=== PATIENT | female | born 1980 | race Asian ===

== ENCOUNTER 2023-09-27 20:25 | Emergency (ER) | payer OTHER, SELFPAY ==
[2023-09-27 20:27] VITALS: BP 139/89
[2023-09-27 20:57] LABS: Urine Albumin 3+ (Neg - Trace); Urine Bilirubin Negative (Negative); Urine Character Slightly Cloudy (Clear); Urine Color Red; Urine Glucose Negative (Negative); Urine Ketone Negative (Negative); Urine Leukocyte 2+ (Negative); Urine Nitrite Negative (Negative); Urine Occult Blood 4+ (Negative); Urine Urobilinogen Negative (Neg - 1+); Urine pH 6.5 (5.0-9.0)
[2023-09-27 21:01] LABS: HCG, Urine Qualitative Screen Negative
[2023-09-27 21:20] LABS: Urine Red Blood Cell >100 /HPF (0-2)
[2023-09-27] MEDS: TORADOL 30 MG IM (21:28)
[2023-09-27] MEDS: PERCOCET 5/325 1 TABLET PO (21:28)
[2023-09-27 21:38] LABS: % Basophils 0.3 % (0-2); % Eosinophils 0.7 % (0-6); % Immature Granulocytes 0.3 % (0-0.5); % Lymphocytes 13.6 % (20.5-51.1); % Monocytes 6.8 % (1.7-9.3); % Neutrophils 78.3 % (42.2-75.2); Absolute Eosinophils 0.1 10^3/uL (0-0.7); Absolute Lymphocytes 1.6 10^3/uL (1.2-3.4); Absolute Monocytes 0.8 10^3/uL (0.1-0.6); Absolute Neutrophils 9.2 10^3/uL (1.4-6.5); Hematocrit 38.7 % (37.0-47.0); Hemoglobin 12.8 g/dL (12.0-16.0); Mean Corp Hgb Conc. 33.1 g/dL (33.0-37.0); Mean Corpuscular Hgb 27.3 pg (27.0-31.0); Mean Corpuscular Volume 82.5 fL (81.0-99.0); Mean Platelet Volume 9.6 fL (7.4-10.4); Nucleated Red Blood Cells % 0 %; Platelet Count 250 10^3/uL (130-400); Red Blood Cell Count 4.69 10^6/uL (4.20-5.40); White Blood Cell Count 11.8 10^3/uL (4.8-10.8)
[2023-09-27 22:12] LABS: ALT (SGPT) 22 U/L (0-35); AST (SGOT) 25 U/L (14-36); Albumin 4.9 g/dl (3.5-5.0); Alkaline Phosphatase 82 U/L (38-126); Blood Urea Nitrogen 8 mg/dl (7-17); Calcium 9.7 mg/dl (8.4-10.2); Carbon Dioxide 28 mmol/L (22-30); Chloride 101 mmol/L (98-107); Glucose 104 mg/dl (70-99); Potassium 3.8 mmol/L (3.5-5.1); Sodium 137 mmol/L (135-145); Total Bilirubin 0.6 mg/dl (0.2-1.3); Total Protein 7.9 g/dl (6.3-8.2); eGFR > 60.00
--- NOTE | 2023-09-27 22:41 | ED.GENMED ---
Addendum entered and electronically signed by Ahmet Reynolds PA-C 10/01/23 10:33:
Patient's urine culture returned with greater than 100,000 CFU of E. coli that is pansensitive. Patient has no listed allergies so prescription for Augmentin was sent to patient's pharmacy. I contacted the patient but there was no answer so a
voicemail was left for the patient to contact the ER back.
Original Note:
History of Present Illness
General
Chief Complaint: Abdominal Pain
Source: patient
Exam Limitations: none
Time Seen by Provider: 09/27/23 22:25
Nursing documentation reviewed up to this point in time: agreed with
History of Present Illness
History of Present Illness:
Patient presents to ED secondary to painful urination associated with discomfort in her 'private area', noted this morning. This evening, patient noted blood in her urine with passage of 'small speck of stone'. Denies fever or chills. Denies
nausea or vomiting. Patient does report radiating pain to her back since this morning. Denies previous history of similar symptoms. Denies recent illness. Denies trauma. There is family history of kidney stones however.
Past History
Past History
ED Past Medical History: None
ED Past Surgical History: None
Social History
Tobacco: Non-smoker
Alcohol: None
Drug: None
Personal:
Living: with family
Employment: Employed
Family History
Family History: Other (All family members are sick with similar)
Review of Systems
Review of Systems
Allergies reviewed?: Yes
All Other Systems: ROS reviewed and negative except as documented in HPI and ROS
Constitutional: Reports no symptoms; Denies fever
ABD/GI: Reports no symptoms; Denies abdominal pain, nausea or vomiting
: Reports dysuria and bleeding
Skin: Reports no symptoms
Neurological: Reports no symptoms
Phy Exam
Physical Exam
Physical Exam:
Physical Exam
General: no apparent distress, not acutely ill. afebrile
Head: nc/at. eomi
Neck: supple. normal range of motion
Abdomen: normal bowel sounds. not tender.
Back: no cva tenderness
Neuro: alert and oriented. no focal neurological deficits
Skin: no rash
Psychiatric: well kept. interactive and cooperative
Extremities: no edema. no calf tenderness.
Course
Orders/Labs/Results
Orders:
Orders
09/27/23 20:30
Test Result ONCE
09/27/23 20:32
HCG, Urine Qualitative Screen Urgent
Date Specimen was Collected: 09/27/23
Time Specimen was Collected: 20:30
Urinalysis Reflex To Culture Urgent
Date Specimen was Collected: 09/27/23
Time Specimen was Collected: 20:30
Urine Microscopic Reflex Cult Urgent
Urine Culture Urgent
LISSETH Source: U
Specimen Description:
Date Specimen was Collected: 09/27/23
Time Specimen was Collected: 20:30
09/27/23 21:23
Ketorolac [Toradol] 30 mg IM NOW STA
Oxycodone/Acetaminophen [Percocet 5/325] 1 tablet PO NOW STA
09/27/23 21:24
CT Abd/pel Without Iv Or Oral Urgent
Comment:
Reason For Exam: right sided flank pain, suspect kidney stone
09/27/23 21:32
Complete Blood Count/With Diff Urgent
Comprehensive Metabolic Panel Urgent
Abnormal Lab Results
09/27/23 09/27/23
20:32 21:32
WBC 11.8 H 10^3/uL
(4.8-10.8)
Absolute Neuts (auto) 9.2 H 10^3/uL
(1.4-6.5)
Absolute Monos (auto) 0.8 H 10^3/uL
(0.1-0.6)
Neutrophils % 78.3 H %
(42.2-75.2)
Lymphocytes % 13.6 L %
(20.5-51.1)
Glucose 104 H mg/dl
(70-99)
Ur Occult Blood Reflex 4+ A
(Negative)
Leukocyte Esterase Rfl 2+ A
(Negative)
Urine RBC >100 A /HPF
(0-2)
Urine Albumin (Reflex) 3+ A
(Neg - Trace)
09/27/23 21:32
09/27/23 21:32
Vital Signs
Initial and Last Documented VS:
Initial Vital Signs
Temp Pulse Resp BP Pulse Ox
98.5 F 94 18 139/89 98
09/27/23 20:27 09/27/23 20:27 09/27/23 20:27 09/27/23 20:27 09/27/23 20:27
Last Documented Vital Signs
Temp Pulse Resp BP Pulse Ox
98.5 F 81 16 117/73 97
09/27/23 20:27 09/27/23 22:50 09/27/23 22:50 09/27/23 22:50 09/27/23 22:50
MDM/Problems Addressed
MDM/Problems Addressed:
Pt reports complete resolution of symptoms after treatment. History and exam consistent with likely recently passed kidney stone. Mild leukocytosis, likely reactive. Urinalysis, difficult ascertain secondary to blood, but patient does not have
any history of urinary tract infection. As such, will withhold antibiotics at this time.
Urine culture pending.
Patient will be discharged home in stable condition, to the care of her family, with recommendation to take Tylenol/Motrin for symptomatic relief, likely secondary to residual spasm from recently passed stone. However, if symptoms persist or worsen
over the next 24 to 48 hours, advised follow-up with referred urologist or return to ED for reevaluation.
*Critical Care Note
Total Time (30-74mins, 75-104mins- exclusive of procedures): Not Applicable
ED Attending Note
-
Portions of this chart may have been created with voice recognition software.� Occasional wrong word or��sound alike� substitutions may have occurred due to the inherent limitations of voice recognition software.
Discharge Plan
Departure
Patient Disposition: Home (Routine Discharge)
Date of Disposition: 09/27/23
Time of Disposition: 22:41
Patient with high blood pressure during this ER visit?: Yes
Condition: Good
Discharge Problem:
Kidney stone
Instructions: Kidney Stone, Adult ED
Prescriptions:
No Action
pantoprazole 40 MG tablet,delayed release (DR/EC)
40 mg PO BID
mometasone-formoterol [Dulera] 1 PUFF HFA aerosol inhaler
200 mg
norgestimate-ethinyl estradiol [Rwn-Tv-Zhkvkznn] 1 EACH tablet
PO
Referrals:
Tan Jennings MD [Active] -
Activity Restrictions/Additional Instructions:
As discussed, it appears as though you may have already passed your kidney stone. Please continue to stay hydrated along with Advil/Tylenol for next 24 hours, for potential residual spasm from recently passed stone. However, if your symptoms
persist or worsen beyond the next 24 hours, especially associated with fever/worsening pain/vomiting, please consider following up with referred urologist or return to ED for reevaluation
Interventions
Interventions:
*Risk Screen - Suicide Last Done: 09/27/23 23:01
*General Assessment Last Done: 09/27/23 20:27
*Neglect/Abuse Screening Last Done: 09/27/23 23:01
ED- Fall Risk Assessment Last Done: 09/27/23 23:01
*ED COVID-19 Vaccine History Last Done: 09/27/23 23:01
*Nursing Disposition Last Done: 09/27/23 23:01
TH-Yqlfhz-Skyqfuojth Assessment Last Done: 09/27/23 22:50
Discharge Date and Time
Discharge Date/Time: 09/27/23 23:02
Print Language: WELSH
[2023-09-27 22:50] VITALS: BP 117/73
== END 2023-09-27 23:02 | disposition home or self-care (01) ==
LOC: EMR 20:25
PROVIDERS: Emergency Medicine; Physician Assistant; EMERGENCY PHYSICIAN Emergency Medicine; FAMILY PHYSICIAN Physician Assistant Medical
DX: N20.0 Calculus of kidney (principal); N39.0 Urinary tract infection, site not specified; B96.20 Unspecified Escherichia coli [E. coli] as the cause of diseases classified elsewhere
CPT/HCPCS: 99284; 96372; 74176; 80053; 81003; 81015; 81025; 85025; 87077; 87086; 87186

== ENCOUNTER → 2023-10-25 08:05 | Outpatient (REF) | payer OTHER, SELFPAY | LOC: RAD 08:05 | PROVIDERS: ATTENDING PHYSICIAN Specialist; FAMILY PHYSICIAN Family Medicine | DX: N26.1 Atrophy of kidney (terminal) (principal) | CPT/HCPCS: 74170; Q9967 ==

== ENCOUNTER → 2024-09-21 15:14 | Outpatient (REF) | payer OTHER, SELFPAY | LOC: WDC 15:14 | PROVIDERS: ATTENDING PHYSICIAN Physician Assistant Medical | DX: Z12.31 Encounter for screening mammogram for malignant neoplasm of breast (principal) | CPT/HCPCS: 77063; 77067 ==